=== PATIENT | male | born 1955 | race Caucasian/White ===

== ENCOUNTER → 2018-07-10 | Outpatient (CLI) | payer OTHER, MEDICAID | LOC: BMCIMAGING 16:47 | PROVIDERS: ATTEND Family Medicine | DX: N20.0 Calculus of kidney (principal) ==

== ENCOUNTER 2018-07-13 16:50 | Day surgery (SDC) | payer OTHER, MEDICAID ==
[2018-07-13] MEDS ORDERED: OPIUM/BELLADONNA ALKALO SUPP PR ONE (17:03)
[2018-07-13] MEDS ORDERED: LIDOCAINE 2% JELLY 20 ML (UROJECT) ONE (17:03)
[2018-07-13] MEDS ORDERED: IOPAMIDOL (ISOVUE-M 300) 15 ML VIAL ONE (17:03)
[2018-07-13] MEDS ORDERED: LR 1,000 ML IV ONE (17:12)
[2018-07-13] MEDS ORDERED: CEFAZOLIN 2 GM/DEXTROSE/100 ML BAG IV ONE (17:29)
[2018-07-13] MEDS ORDERED: MIDAZOLAM 2 MG/2 ML VIAL IVP ONE (17:31)
[2018-07-13] MEDS ORDERED: KETOROLAC 30 MG/1 ML SDV IVP ONE (17:31)
[2018-07-13] MEDS ORDERED: fentaNYL 100 MCG/2 ML INJ IVP ONE (17:32)
--- NOTE | 2018-07-13 17:32 | PDGENHP ---
History and Physical - Chief Complaint left flank pain, left obs ureteral stone - History of Present Illness 63M presented to my office w severe left flank pain. CT scan obtained, left 7mm obs ureteral stone, other nonobs renal stones. No fevers, chills, but nausea and severe pain. Pain not managed well w PO pain meds. History Information - Allergies/Home Medication List Allergies/Adverse Reactions: No Known Allergies Allergy (Unverified 07/13/18 17:17) Home Medications: Timolol 07/13/18 [Last Taken 07/13/18] I have personally reviewed and updated: family history, medical history, social history, surgical history Review of Systems Review of Systems: ROS: 10pt was reviewed & negative except for what was stated in HPI & below Physical Exam Physical Exam: Temp Pulse Resp BP Pulse Ox 36.6 C 96 14 134/110 H 95 07/13/18 17:18 07/13/18 17:18 07/13/18 17:18 07/13/18 17:18 07/13/18 17:18 Constitutional: uncomfortable Respiratory: no respiratory distress Gastrointestinal: soft, non-tender abdomen Genitourinary: other (left flank tenderness) Musculoskeletal: full muscle strength Neurologic: AAOx3 Assessment & Plan Assessment: Left flank pain, left obs ureteral stone, left nonobs renal stones, right nonobs renal stones. Pain has worsened and he desires treatment to relieve pain. Recommend stent for decompression of obstruction and we will plan on treating all his left sided stones at a second procedure. Plan: Left ureteral stent placement. Rationale, risks, benefits discussed, he agrees to proceed. Plan on tx of all left stones at later date.
[2018-07-13] MEDS ORDERED: OPIUM/BELLADONNA ALKALO SUPP PR PRN (17:34)
[2018-07-13] MEDS ORDERED: fentaNYL 100 MCG/2 ML INJ ONE ×2 (17:34→17:40)
[2018-07-13] MEDS ORDERED: KETOROLAC 30 MG/1 ML SDV ONE (17:34)
[2018-07-13] MEDS ORDERED: ceFAZolin 2 GM/DEXTROSE 100 ML IV ONE (17:34)
--- NOTE | 2018-07-13 17:34 | PDANEPAE ---
ANE History of Present Illness ureteroscopy ANE Past Medical History - Cardiovascular History Hx Hypertension: No Hx Arrhythmias: No Hx Chest Pain: No Hx Coronary Artery / Peripheral Vascular Disease: No Hx CHF / Valvular Disease: No Hx Palpitations: No - Pulmonary History Hx COPD: No Hx Asthma/Reactive Airway Disease: No Hx Recent Upper Respiratory Infection: No Hx Oxygen in Use at Home: No Hx Sleep Apnea: No - Neurologic History Hx Cerebrovascular Accident: No Hx Seizures: No Hx Dementia: No - Endocrine History Hx Diabetes: No Hypothyroid: No Hyperthyroid: No Obesity: no - Renal History Hx Renal Disorders: Yes - Liver History Hx Hepatic Disorders: No ANE Review of Systems Review of Systems: - Exercise capacity Exercise capacity: >=4 METS ANE Patient History - Allergies Allergies/Adverse Reactions: No Known Allergies Allergy (Unverified 07/13/18 17:17) - Home Medications Home medications: home medication list seen and reviewed Home Medications: Timolol 07/13/18 [Last Taken 07/13/18] - NPO status NPO Since - Liquids (Date): 07/13/18 NPO Since - Liquids (Time): 10:00 NPO Since - Solids (Date): 07/13/18 NPO Since - Solids (Time): 06:30 - Anes Hx Anes Hx: no prior problems ANE Labs/Vital Signs - Vital Signs Blood Pressure: 134/110 Heart Rate: 96 Respiratory Rate: 14 O2 Sat (%): 95 Height: 167 cm Weight: 82 kg ANE Physical Exam - Airway Mallampati Score: Class 2 Mouth exam: normal dental/mouth exam - Pulmonary Pulmonary: no respiratory distress - Cardiovascular Cardiovascular: regular rate and rhythym - ASA Status ASA Status: II ANE Anesthesia Plan Anesthesia Plan: GA w LMA
[2018-07-13] MEDS ORDERED: LIDOCAINE 2% 2 ML INJ ONE ×3 (17:40)
[2018-07-13] MEDS ORDERED: PROPOFOL 200 MG/20 ML VIAL ONE (17:40)
[2018-07-13] MEDS ORDERED: DEXAMETHASONE 4 MG/ML VIAL ONE (17:48)
--- NOTE | 2018-07-13 18:17 | POSTOPPROG ---
Post Op Note Date of Operation: 07/13/18 Surgeon: Tammy Reyna Anesthesia: LMA Pre-op Diagnosis: left obstructing ureteral stone, bilateral nonobs renal stones , left hydro Post-op Diagnosis: same Indication: severe left flank pain Procedure: cysto, left ureteral stent placement, fluoro Findings: normal bladder, nice placement L ureteral stent Inf/Abcess present in the surg proc area at time of surgery?: No EBL: Minimal Complications: none, pt tolerated procedure well
[2018-07-13] MEDS ORDERED: NALOXONE HCL 0.4 MG/ML INJ IVP PRN (18:22)
[2018-07-13] MEDS ORDERED: HYDROmorphONE/DILAUDID 2 MG/ML INJ IVP PRN (18:22)
[2018-07-13] MEDS ORDERED: fentaNYL 100 MCG/2 ML INJ IVP PRN (18:22)
[2018-07-13] MEDS ORDERED: LR 500 ML IV PRN (18:22)
[2018-07-13] MEDS ORDERED: ALBUTEROL 3 ML DEYVIAL IH PRN (18:22)
[2018-07-13] MEDS ORDERED: ONDANSETRON 4 MG/2 ML VIAL IVP PRN (18:22)
[2018-07-13] MEDS ORDERED: PROMETHAZINE HCL 25 MG/ML INJ IVP PRN (18:22)
--- NOTE | 2018-07-13 18:23 | POSTANESTH ---
Post Anesthetic Evaluation Cardiovascular Status: Normal, Stable Respiratory Status: Normal, Stable Level of Consciousness/Mental Status: Can Participate in Eval Pain Control: Adequate, Prn Tx Ordered Nausea/Vomiting Control: Adequate, Prn Tx Ordered Complications Possibly Related to Anesthesia: None Noted
[2018-07-13] MEDS ORDERED: ONDANSETRON 4 MG/2 ML VIAL ONE (19:07)
[2018-07-13 19:43] VITALS: BP 130/70
--- NOTE | 2018-07-13 21:33 | GOP ---
DATE OF OPERATION: 07/13/2018 SURGEON: Tammy Reyna MD ANESTHESIA: LMA. PREOPERATIVE DIAGNOSIS: Left obstructing ureteral stone, bilateral nonobstructing renal stones with hydronephrosis and pain. POSTOPERATIVE DIAGNOSIS: Left obstructing ureteral stone, bilateral nonobstructing renal stones with hydronephrosis and pain. PROCEDURE PERFORMED: Cystoscopy, left ureteral stent placement, intraoperative fluoroscopy. FINDINGS: Normal bladder, nice placement of the left ureteral stent. ESTIMATED BLOOD LOSS: Minimal. INDICATIONS: Severe left flank pain not managed well with oral medications secondary to an obstructi ng left ureteral stone. The patient was seen in my office today for significant left flank pain. He had not had a CT for def initive diagnosis. He underwent a stat CT at [facility], and there was a 7 mm obstructing stone a nd bilateral nonobstructing renal stones. I discussed trial of passage with him versus a stent place ment today with plan for treatment of his ureteral and renal stones at a later date, and he elected f or the placement today with a 2nd procedure to treat all of his stones. He understood the risks, and I discussed them with him of bleeding, infection, pain, injury to the urethra, the ureter, the bladd er, need for IR to place a perc tube if I am unable to place a stent. He understood these risks and agreed to proceed. DESCRIPTION OF PROCEDURE: The patient was taken back to the cystoscopy suite, placed on the cystosco py table in the supine position. General anesthesia induced without complication. Time-out performe d and core measures satisfied including placement of a Kate Hugger, SCDs and administration of ____ antibiotics. He was brought to the end of the table and placed in the dorsal lithotomy position and all pressure points padded. Genitalia were draped and prepped in a standard surgical fashion wi th Betadine. We used a cystoscope and cannulated the urethral meatus without difficulty. Advanced a traumatically into the bladder. Graham cystoscopy performed, and there were no stones in the bladder an d also no lesions, cellules, trabeculations or abnormalities. The right and left ureteral orifices w ere in their expected anatomical position. Attention was focused on the left ureteral orifice where a Glidewire was placed with the assistance of a 5-Bengali open-ended catheter, and this was confirmed with fluoroscopy, and then a 6-Bengali multivariable stent was placed with fluoroscopic and cystoscopi c guidance with curl in the renal pelvis and a curl in the bladder. At this point, the procedure was considered complete. His bladder was emptied. He was awoken from anesthesia and transferred to PAC U in good condition. Of note, I did place a belladonna opium suppository and plain lidocaine jelly p er urethra prior to waking him up from anesthesia. COMPLICATIONS: None. /[id number]/MODL
== END 2018-07-13 19:40 | disposition home or self-care (01) ==
LOC: FSGY 16:50
PROVIDERS: ATTEND Urology
PROC: 0T778DZ Dilation of Left Ureter with Intraluminal Device, Via Natural or Artificial Opening Endoscopic (ICD-10-PCS; principal; 2018-07-13 17:30)
DX: N20.2 Calculus of kidney with calculus of ureter (principal); N13.30 Unspecified hydronephrosis
CPT/HCPCS: 52332; C1758; C1769; C2625; J0690; J1100; J1885; J2250; J2405; J2704; J3010; Q9967

== ENCOUNTER 2018-07-23 11:40 | Day surgery (SDC) | payer OTHER, MEDICAID ==
[2018-07-23] MEDS ORDERED: ceFAZolin 2 GM/DEXTROSE 100 ML IV ONE (11:52)
[2018-07-23] MEDS ORDERED: LR 1,000 ML IV ONE (11:52)
[2018-07-23] MEDS ORDERED: OPIUM/BELLADONNA ALKALO SUPP PR PRN (11:52)
[2018-07-23] MEDS ORDERED: DEXAMETHASONE 4 MG/ML VIAL ONE (12:54)
[2018-07-23] MEDS ORDERED: PROPOFOL 200 MG/20 ML VIAL ONE (12:54)
[2018-07-23] MEDS ORDERED: LIDOCAINE 2% 2 ML INJ ONE (12:54)
[2018-07-23] MEDS ORDERED: ONDANSETRON 4 MG/2 ML VIAL ONE (12:54)
[2018-07-23] MEDS ORDERED: fentaNYL 100 MCG/2 ML INJ ONE (12:54)
[2018-07-23] MEDS ORDERED: MIDAZOLAM 2 MG/2 ML VIAL IVP ONE (14:15)
--- NOTE | 2018-07-23 14:16 | PDHPUP ---
History & Physical Update H&P update statement: This history and physical update is based on an assessment of the patient which was completed after admission or registration (within 24 hours), but prior to the surgery/procedure. H&P update: H&P reviewed & patient examined, changes noted (left stent placed , here for stone tx)
--- NOTE | 2018-07-23 14:18 | PDANEPAE ---
ANE Past Medical History - Cardiovascular History Hx Hypertension: No Hx Arrhythmias: No Hx Chest Pain: No Hx Coronary Artery / Peripheral Vascular Disease: No Hx CHF / Valvular Disease: No Hx Palpitations: No - Pulmonary History Hx COPD: No Hx Asthma/Reactive Airway Disease: No Hx Recent Upper Respiratory Infection: No Hx Oxygen in Use at Home: No Hx Sleep Apnea: Yes Sleep Apnea Screening Result - Last Documented: Positive - Neurologic History Hx Cerebrovascular Accident: No Hx Seizures: No Hx Dementia: No - Endocrine History Hx Diabetes: No - Renal History Hx Renal Disorders: No Renal History Comment: kidney stones - Liver History Hx Hepatic Disorders: No - Neurological & Psychiatric Hx Hx Neurological and Psychiatric Disorders: Yes Neurological / Psychiatric History Comment: anxiety/depression hx of ect treatments - Cancer History Hx Cancer: No - Congenital Disorder History Hx Congenital Disorders: No - GI History Hx Gastrointestinal Disorders: No - Other Health History Other Health History: glaucoma - Chronic Pain History Chronic Pain: No - Surgical History Prior Surgeries: none in last 5 yrs. 2005 last sx ANE Review of Systems Review of Systems: - Exercise capacity METS (RN): 6 METS ANE Patient History - Allergies Allergies/Adverse Reactions: No Known Allergies Allergy (Verified 07/22/18 12:37) - Home Medications Home Medications: Timolol 07/13/18 [Last Taken 07/13/18] Oxybutynin Chloride [Ditropan] 07/22/18 [Last Taken Unknown] Phenazopyridine HCl [Pyridium] 07/22/18 [Last Taken Unknown] Sennosides/Docusate Sodium [Senna-Docusate Sodium Tablet] 07/22/18 [Last Taken Unknown] Tamsulosin HCl [Flomax] 07/22/18 [Last Taken Unknown] - NPO status NPO Since - Liquids (Date): 07/23/18 NPO Since - Liquids (Time): 10:00 NPO Since - Solids (Date): 07/22/18 NPO Since - Solids (Time): 20:00 - Anes Hx Anes Hx: no prior problems - Smoking Hx Smoking Status: Never smoked - Family Anes Hx Family Anes Hx: none Family Hx Anesthesia Complications: none ANE Labs/Vital Signs - Vital Signs Blood Pressure: 154/95 Heart Rate: 65 Respiratory Rate: 16 O2 Sat (%): 95 Height: 167.64 cm Weight: 83.915 kg ANE Physical Exam - Airway Neck exam: FROM Mallampati Score: Class 2 Mouth exam: normal dental/mouth exam - Pulmonary Pulmonary: no respiratory distress, no rales or rhonchi, clear to auscultation - Cardiovascular Cardiovascular: regular rate and rhythym, no murmur, rub, or gallop - ASA Status ASA Status: III ANE Anesthesia Plan Anesthesia Plan: GA w LMA
[2018-07-23] MEDS ORDERED: fentaNYL 100 MCG/2 ML INJ IVP PRN (14:32)
[2018-07-23] MEDS ORDERED: NALOXONE HCL 0.4 MG/ML INJ IVP PRN (14:32)
[2018-07-23] MEDS ORDERED: MEPERIDINE 25 MG/0.5 ML AMP IVP PRN (14:32)
[2018-07-23] MEDS ORDERED: PHENYLEPHRINE HCL 100 MCG/ML SYR IVP PRN (14:32)
[2018-07-23] MEDS ORDERED: METOCLOPRAMIDE 10 MG/2 ML VIAL IVP PRN (14:32)
[2018-07-23] MEDS ORDERED: oxyCODONE IR 5 MG TAB PO PRN (14:32)
[2018-07-23] MEDS ORDERED: ONDANSETRON 4 MG/2 ML VIAL IVP PRN (14:32)
[2018-07-23] MEDS ORDERED: LR 500 ML IV PRN (14:32)
[2018-07-23] MEDS ORDERED: PROMETHAZINE HCL 25 MG/ML INJ IVP PRN (14:32)
[2018-07-23] MEDS ORDERED: HYDROmorphONE/DILAUDID 2 MG/ML INJ IVP PRN (14:32)
[2018-07-23] MEDS ORDERED: LIDOCAINE 2% JELLY 20 ML (UROJECT) ONE (15:01)
[2018-07-23] MEDS ORDERED: OPIUM/BELLADONNA ALKALO SUPP PR ONE (15:01)
[2018-07-23] MEDS ORDERED: ePHEDrine SULFATE 25 MG/5 ML SYR ONE (15:22)
[2018-07-23] MEDS ORDERED: IOTHALAMATE MEG (CONRAY) 50 ML VIAL IV ONE (15:53)
--- NOTE | 2018-07-23 16:24 | POSTOPPROG ---
Post Op Note Date of Operation: 07/23/18 Surgeon: Tammy Reyna Anesthesiologist: Jorge Alberto Anesthesia: GET(General Endotracheal) Pre-op Diagnosis: left ureteral and renal stones Post-op Diagnosis: same Indication: left ureteral stone, obstruction, pain Procedure: cysto,LURS,laser lithotripsy,stent, basket ext stone, RGP, fluoro Findings: left ureteral stone, renal stones Inf/Abcess present in the surg proc area at time of surgery?: No EBL: Minimal Complications: None, patient tolerated procedure well Specimen(s): stone
--- NOTE | 2018-07-23 17:11 | GOP ---
[f rep st] OPERATIVE REPORT DATE OF OPERATION: 07/23/2018 SURGEON: Tammy Reyna MD ANESTHESIA: General. ANESTHESIOLOGIST: Arthur Azul MD. PREOPERATIVE DIAGNOSIS: Left ureteral and renal stones and hydronephrosis. POSTOPERATIVE DIAGNOSIS: Left ureteral and renal stones and hydronephrosis. PROCEDURE PERFORMED: Cystoscopy, left ureteroscopy, laser lithotripsy, stent, basket extraction of s tone, retrograde pyelogram, and intraoperative fluoroscopy. FINDINGS: Left ureteral stone and renal stones. SPECIMENS: Stone. ESTIMATED BLOOD LOSS: Minimal. INDICATIONS: The patient presented to my office a couple of weeks ago with a retractable pain on the left and he had an elevated white count and also stranding around his kidney. There was concern for infection above the stone and a stent was placed at that time. He has come in today for treatment o f his left stones. The rationale, risks, and benefits, including bleeding, infection, pain; injury t o either urethra, bladder, ureters; inability to gain access to the stone; need for just a stent; and need for subsequent procedures, possibly for left percutaneous nephrostomy tube, were all discussed with the patient and he agreed to proceed. DESCRIPTION OF PROCEDURE: The patient was taken back to the cystoscopy suite, placed on the cystosco py table in a supine position. General anesthesia induced without complication. Time-out performed. Core measures satisfied, including placement of a Kate Hugger, SCDs, and administration of Ancef an tibiotics. He was brought to the end of the table, placed in a dorsal lithotomy position. All press ure points padded. Genitalia draped and prepped in standard surgical fashion with Betadine. A rigid cystoscope easily cannulated the urethral meatus and was advanced atraumatically into the bladder. Pancystoscopy performed and there were no stones in the bladder. Left ureteral stent was visualized, grasped with a grasper, the distal end externalized, a Glidewire placed through the lumen of the hope nt with fluoroscopic guidance, into the left collecting system. Then, the cystoscope was readvanced into the bladder and another Glidewire was placed with fluoroscopic and cystoscopic guidance. Then, a 14-Cook Islander Ray was placed to decompress the bladder. A rigid ureteroscope was advanced without di fficulty into the urethra and into the bladder, into the left collecting system. The distal stone wa s encountered. It was easily seen on fluoro. The stone was. Then, the laser FiberWire was advanced to the level of the stone. The stone was lasered into basketable fragments. All fragments removed. What remained was just dust. I advanced the rigid scope as far as I could, which was right into th e left collecting system, and there were no other stones seen in the ureter. I then removed that rig id scope and then placed a 12/14-Cook Islander ureteral access sheath with fluoroscopic guidance into the le ft collecting system, advanced a flexible ureteroscope into the left collecting system, and was able to see several of the stones in nearly every calyx that I was able to basket extract out. None of th edgar stones required lasering. He did have a complex system with several calices. There was a stone underneath the renal pelvis mucosa and I did laser this a little bit to extract the stone, but otherw ise all the other stones were basket extracted and at the end of the case, I feel they cleared him of stones. The safety wear was still up. I removed the sheath and the scope together, examining the w all of the ureter, and there was some mild edema where the prior ureteral stone had been lodged, but otherwise the ureter looked healthy. Then, I backloaded the safety wire into the cystoscope and then with fluoroscopic and cystoscopic guidance, placed a left 6-Cook Islander 26 cm double-J stent with a nice curl in the renal pelvis and a nice curl in the bladder. The bladder was emptied. Lidocaine jelly w as placed per urethra and a belladonna opium suppository placed per the rectum. At this point, the p rocedure was considered complete. He was awoken from anesthesia and transferred to PACU in good cond ition. COMPLICATIONS: None. The patient tolerated the procedure well. /[id number]/MODL
[2018-07-23 17:33] VITALS: BP 146/95
== END 2018-07-23 17:47 | disposition home or self-care (01) ==
LOC: FSGY 11:40
PROVIDERS: ATTEND Urology
DX: N20.2 Calculus of kidney with calculus of ureter (principal)
CPT/HCPCS: 52353; C1758; C1769; C1894; 82365-90; C2625; J0690; J1100; J2250; J2405; J2704; J3010; Q9961

== ENCOUNTER → 2018-07-28 | Outpatient (CLI) | payer OTHER, MEDICAID | LOC: FIMAGING 13:44 | PROVIDERS: ATTEND Urology | DX: N20.0 Calculus of kidney (principal); I87.8 Other specified disorders of veins ==

== ENCOUNTER → 2018-07-30 | Outpatient (CLI) | payer OTHER, MEDICAID | LOC: FIMAGING 12:01 | PROVIDERS: ATTEND Family Medicine | DX: M50.30 Other cervical disc degeneration, unspecified cervical region (principal) ==

== ENCOUNTER 2018-08-20 08:18 | Day surgery (SDC) | payer OTHER, MEDICAID ==
[2018-08-20] MEDS ORDERED: ceFAZolin 2 GM/DEXTROSE 100 ML IV ONE (08:29)
[2018-08-20] MEDS ORDERED: OPIUM/BELLADONNA ALKALO SUPP PR PRN (08:29)
[2018-08-20] MEDS ORDERED: LR 1,000 ML IV ONE (08:32)
[2018-08-20] MEDS ORDERED: LIDOCAINE 2% JELLY 20 ML (UROJECT) ONE (09:32)
[2018-08-20] MEDS ORDERED: IOPAMIDOL (ISOVUE-M 300) 15 ML VIAL ONE (09:32)
--- NOTE | 2018-08-20 09:34 | PDHPUP ---
History & Physical Update H&P update statement: This history and physical update is based on an assessment of the patient which was completed after admission or registration (within 24 hours), but prior to the surgery/procedure. H&P update: H&P reviewed & patient examined, no change in patient's condition since H&P completed (Pt has mild cough that started yesterday, but no sequelae from this and he is cleared by Anes standpoint. )
--- NOTE | 2018-08-20 09:34 | PDANEPAE ---
ANE History of Present Illness here for ureteroscopy ANE Past Medical History - Cardiovascular History Hx Hypertension: No Hx Arrhythmias: No Hx Chest Pain: No Hx Coronary Artery / Peripheral Vascular Disease: No Hx CHF / Valvular Disease: No Hx Palpitations: No - Pulmonary History Hx COPD: No Hx Asthma/Reactive Airway Disease: No Hx Recent Upper Respiratory Infection: No Hx Oxygen in Use at Home: No Hx Sleep Apnea: No Sleep Apnea Screening Result - Last Documented: Positive - Neurologic History Hx Cerebrovascular Accident: No Hx Seizures: No Hx Dementia: No - Endocrine History Hx Diabetes: No - Renal History Hx Renal Disorders: No Renal History Comment: kidney stones - Liver History Hx Hepatic Disorders: No - Neurological & Psychiatric Hx Hx Neurological and Psychiatric Disorders: Yes Neurological / Psychiatric History Comment: anxiety/depression hx of ect treatments - Cancer History Hx Cancer: No - Congenital Disorder History Hx Congenital Disorders: No - GI History Hx Gastrointestinal Disorders: No - Other Health History Other Health History: glaucoma - Chronic Pain History Chronic Pain: No - Surgical History Prior Surgeries: none in last 5 yrs. 2004 last sx ANE Review of Systems Review of Systems: - Exercise capacity METS (RN): 6 METS ANE Patient History - Allergies Allergies/Adverse Reactions: No Known Allergies Allergy (Verified 08/12/18 10:29) - Home Medications Home medications: home medication list seen and reviewed Home Medications: Timolol 07/13/18 [Last Taken 08/20/18] Sennosides/Docusate Sodium [Senna-Docusate Sodium Tablet] 07/22/18 [Last Taken 07/24/18] Tamsulosin HCl [Flomax] 07/22/18 [Last Taken 08/20/18] Levothyroxine 08/12/18 [Last Taken 08/20/18] - NPO status NPO Status: no food or drink >8 hours NPO Since - Liquids (Date): 08/19/18 NPO Since - Liquids (Time): 22:00 NPO Since - Solids (Date): 08/19/18 NPO Since - Solids (Time): 22:00 - Anes Hx Anes Hx: no prior problems - Smoking Hx Smoking Status: Never smoked - Alcohol Use Alcohol Use: None - Family Anes Hx Family Anes Hx: none Family Hx Anesthesia Complications: none ANE Labs/Vital Signs - Vital Signs Blood Pressure: 128/92 Heart Rate: 78 Respiratory Rate: 16 O2 Sat (%): 96 Height: 167.64 cm Weight: 81.647 kg ANE Physical Exam - Airway Neck exam: FROM Mallampati Score: Class 2 Mouth exam: normal dental/mouth exam Mouth image: 1 - missing 2 - missing - Pulmonary Pulmonary: no respiratory distress, clear to auscultation - Cardiovascular Cardiovascular: regular rate and rhythym, no murmur, rub, or gallop - ASA Status ASA Status: II ANE Anesthesia Plan Anesthesia Plan: GA w LMA
[2018-08-20] MEDS ORDERED: MIDAZOLAM 2 MG/2 ML VIAL IVP ONE (09:36)
[2018-08-20] MEDS ORDERED: MIDAZOLAM 2 MG/2 ML VIAL ONE (09:43)
[2018-08-20] MEDS ORDERED: fentaNYL 100 MCG/2 ML INJ ONE ×2 (09:47→11:54)
[2018-08-20] MEDS ORDERED: PROPOFOL 200 MG/20 ML VIAL ONE (09:48)
[2018-08-20] MEDS ORDERED: LIDOCAINE 2% 100 MG/5 ML SYR ONE (09:49)
[2018-08-20] MEDS ORDERED: DEXAMETHASONE 4 MG/ML VIAL ONE (09:54)
[2018-08-20] MEDS ORDERED: OPIUM/BELLADONNA ALKALO SUPP PR ONE (10:09)
[2018-08-20] MEDS ORDERED: ONDANSETRON 4 MG/2 ML VIAL IVP PRN (11:14)
[2018-08-20] MEDS ORDERED: ACETAMINOPHEN 500 MG TAB PO PRN (11:14)
[2018-08-20] MEDS ORDERED: PROMETHAZINE HCL 25 MG/ML INJ IVP PRN (11:14)
[2018-08-20] MEDS ORDERED: HYDROCODONE/APAP 5/325 TAB PO PRN (11:14)
[2018-08-20] MEDS ORDERED: NALOXONE HCL 0.4 MG/ML INJ IVP PRN (11:14)
[2018-08-20] MEDS ORDERED: oxyCODONE IR 5 MG TAB PO PRN (11:14)
--- NOTE | 2018-08-20 11:29 | POSTANESTH ---
Post Anesthetic Evaluation Cardiovascular Status: Normal, Stable, Similar to Pre-Op Cond Respiratory Status: Normal, Stable, Similar to Pre-op Cond. Level of Consciousness/Mental Status: Can Participate in Eval, Alert and Oriented Pain Control: Adequate, Prn Tx Ordered Nausea/Vomiting Control: Adequate, Prn Tx Ordered Complications Possibly Related to Anesthesia: None Noted
--- NOTE | 2018-08-20 11:41 | POSTOPPROG ---
Post Op Note Date of Operation: 08/20/18 Surgeon: Tammy Reyna Anesthesiologist: Micaela Anesthesia: GET(General Endotracheal) Pre-op Diagnosis: right renal stones Post-op Diagnosis: same Indication: right renal stones Procedure: cysto,RURS,laser lithotripsy, stent, basket ext stone, RGP Findings: multiple stones right kidney Inf/Abcess present in the surg proc area at time of surgery?: No EBL: Minimal Complications: none, pt tolerated procedure well Specimen(s): stone fragments
[2018-08-20] MEDS: fentaNYL 100 MCG/2 ML INJ IVP PRN ×2 (11:57→12:25)
[2018-08-20] MEDS ORDERED: KETOROLAC 30 MG/1 ML SDV ONE (11:58)
[2018-08-20] MEDS ORDERED: KETOROLAC 30 MG/1 ML SDV IVP ONE (11:58)
--- NOTE | 2018-08-20 13:21 | GOP ---
[f rep st] OPERATIVE REPORT DATE OF OPERATION: 08/20/2018 SURGEON: Tammy Reyna MD ANESTHESIOLOGIST: Dr. Clovis Hinojosa PREOPERATIVE DIAGNOSIS: Right renal stones, intermittent right flank pain. POSTOPERATIVE DIAGNOSIS: Right renal stones, intermittent right flank pain. PROCEDURE PERFORMED: Cystoscopy, right ureteroscopy, laser lithotripsy, stent, basket extraction of stone, retrograde pyelogram, intraoperative fluoroscopy. FINDINGS: Multiple stones in the right kidney, many requiring laser and basket extraction. Others were small and just required basket extraction. SPECIMENS: Stone fragments. ESTIMATED BLOOD LOSS: Minimal. INDICATIONS: The patient recently had left ureteroscopy and stone clearance and he desired stone clearance on the right as well for multiple renal stones. He has had some intermittent right flank discomfort without any clear indication of ureteral obstruction. The rationale, risks, and benefits of the procedure were discussed in detail, including bleeding, infection, pain, injury to the urethra, the bladder, the ureters, need for a prolonged stent, inability to gain access to his stones, need for subsequent procedures, and he understood all these risks and agreed to proceed. DESCRIPTION OF PROCEDURE: He was taken back to the cystoscopy suite, placed on the cystoscopy table in a supine position. General anesthesia induced without complication. A time-out performed and core measures satisfied, including placement of a Kate Hugger, SCDs, and administration of Ancef antibiotics. He was brought to the end of the table, placed in a dorsal lithotomy position. All pressure points padded. Genitalia draped and prepped in the standard surgical fashion with Betadine. A rigid cystoscope easily cannulated the urethral meatus and was advanced atraumatically into the bladder. The right ureteral orifice was easily identified. A 5-Malay opening catheter was advanced to the into the right ureteral orifice and retrograde pyelogram was performed showing no filling defects in the ureter. Ureter was delicate and smooth. The renal pelvis was not dilated and the calices were sharp. I saw no filling defects or abnormalities on this retrograde. Then, two 0.035 Glidewires were advanced into the right collecting system. The scope was removed. A 12/14-Malay ureteral access sheath was advanced with fluoroscopic guidance over the working wire without any friction or problems. It advanced smoothly into the right proximal ureter. Then, the flexible ureteroscope was advanced into the renal pelvis and into all the calices. I encountered multiple stones. In the mid pole, there was a larger stone I would estimate about 7 mm or so, and the remaining stones in the upper mid and lower poles were all small. Some required laser fragmentation and basket extraction. Some were able to be basketed, extracted. For the larger stone, I advanced the laser fiber to the level of the stone and then lasered it into dust and small basketable fragments. I then used a Zero tip Nitinol basket to the basket out the fragments from all the calices, and at the end of the procedure, I felt I cleared him of stones, except for some very small stones that were too small to basket but passable, and also, he did have some sand that would need to pass as well. At the end, I felt very well about the clearance of his stones. There was some proximal ureteral edema where the access sheath had passed, but was this was mild. The safety wire was still in place. Then, I did a retrograde pyelogram prior to removing the access sheath, and then, I removed the access sheath and scope together. There were no additional stones to be removed in the ureter, and the safety wire was still up, and it was back-loaded into the cystoscope, and then, a 6-Malay 26 cm double-J stent was placed without difficulty with a nice curl in the renal pelvis, a nice curl in the bladder. His bladder was emptied. Belladonna opium suppository placed per rectum and lidocaine jelly placed per urethra. At this point, the procedure was considered complete. He was awoken from anesthesia and transferred to PACU in good condition. COMPLICATIONS: None. The patient tolerated the procedure well. /[id number]/MODL MTDD
[2018-08-20] MEDS ORDERED: HYDROCODONE/APAP 5/325 TAB ONE (13:31)
[2018-08-20 15:02] VITALS: BP 120/86
== END 2018-08-20 14:40 | disposition home or self-care (01) ==
LOC: FSGY 08:18
PROVIDERS: ATTEND Urology
DX: N20.0 Calculus of kidney (principal); F41.9 Anxiety disorder, unspecified; F32.9 Major depressive disorder, single episode, unspecified
CPT/HCPCS: 52356; C1758; C1769; C1894; C2625; J0690; J1100; J1885; J2001; J2250; J2704; J3010; Q9967

== ENCOUNTER → 2018-09-02 | Outpatient (CLI) | payer OTHER, MEDICAID | LOC: FIMAGING 16:59 | PROVIDERS: ATTEND Urology | DX: R10.9 Unspecified abdominal pain (principal); R33.9 Retention of urine, unspecified ==